=== PATIENT | male | born 1940 ===

== ENCOUNTER 2018-01-04 10:13 | Outpatient (CLI) | payer OTHER ==
[~2018-01-04 10:13] MED LIST: LOSARTAN-HCTZ1 EAC1 PO; METFORMIN HCL1000 M1 PO; ZOCOR20 MG PO
[2018-01-09] MEDS ORDERED: TRAMADOL HCL50 MG PO (11:17)
== END 2018-01-04 10:29 | disposition home or self-care (01) ==
LOC: LAB 10:13
DX: K62.89 Other specified diseases of anus and rectum (principal); K59.01 Slow transit constipation; K60.1 Chronic anal fissure; R19.5 Other fecal abnormalities

== ENCOUNTER 2018-01-04 10:20 | Outpatient (CLI) | payer OTHER ==
[2018-01-09] MEDS ORDERED: TRAMADOL HCL50 MG PO (11:17)
== END 2018-01-04 10:30 | disposition home or self-care (01) ==
LOC: RAD 10:20
DX: K62.89 Other specified diseases of anus and rectum (principal); R19.4 Change in bowel habit; R19.5 Other fecal abnormalities; K59.01 Slow transit constipation; K60.1 Chronic anal fissure

== ENCOUNTER 2018-01-12 05:55 | Day surgery (SDC) | payer OTHER ==
[~2018-01-12 05:55] MED LIST changes: +TRAMADOL HCL50 MG PO
[2018-01-12] MEDS ORDERED: PERCOCET 5-3251 EACH PO (11:13)
[2018-01-12] MEDS ORDERED: RECTICARE30 GM TOP (11:13)
== END 2018-01-12 15:10 | disposition home or self-care (01) ==
LOC: CIR.AMB 05:55
DX: K60.1 Chronic anal fissure (principal)